=== PATIENT | female | born 1945 | race Caucasian/White ===

== ENCOUNTER 2018-09-04 07:21 | Inpatient (IN) | payer OTHER ==
--- NOTE | 2018-09-04 07:40 | PDOC ---
History of Present Illness - General Chief Complaint: Shortness of Breath Stated Complaint: SOB Time Seen by Provider: 09/04/18 07:38 - History of Present Illness Initial Comments: 72yo F with PMH of Afib on Coumadin and Aortic/Mitral valve replacement in 2011 and commisurotomy at age 26 presenting with shortness of breath. Patient reports she was feeling well yesterday. Last night, she woke up from bed suddenly with shortness of breath and nonproductive cough. Since that time, she has also had dyspnea on exertion. Does not feel worse if she lays flat. No leg swelling or calf pain. Denies sick contacts. She is visiting from [place] and took a six hour train trip on . States her symptoms feel like episodes of previous pneumonia she has had, as recently as two years ago, which also came on suddenly. Did get a flu shot this season. Reports that 'the valves are starting to close' in regards to her heart surgery but is being monitored every six months. INR was checked one week ago and was 2.1. No hemoptysis, no recent surgical history, no hormone use, no history of DVT or PE. Denies fevers of chills. PCP: Dr. Peter Meng (in [place]) Layout Designer: Dr. Jacobo (in [place]) Past History - Past Medical History Allergies/Adverse Reactions: Allergies Allergy/AdvReac Type Severity Reaction Status Date / Time Penicillins Allergy Verified 09/04/18 07:33 Home Medications: Ambulatory Orders Metoprolol Tartrate [Lopressor -] 50 mg PO DAILY 09/04/18 Simvastatin 40 mg PO 09/04/18 Warfarin Sodium [Coumadin] 9 mg PO DAILY 09/04/18 Cardiac Disorders: Yes (afib) COPD: No Hypercholesterolemia: Yes - Surgical History Cardiac Surgery: Yes (open heart x 2 vaulve replaement) - Suicide/Smoking/Psychosocial Hx Smoking History: Never smoked Have you smoked in the past 12 months: No Information on smoking cessation initiated: No Hx Alcohol Use: No Drug/Substance Use Hx: No Review of Systems - Review of Systems Comments:: Constitutional: no fever, no chills HEENT: no throat pain, no dysphagia Cardiovascular: no chest pain, no palpitations Respiratory: +cough, +shortness of breath Gastrointestinal: no abdominal pain, no vomiting Genitourinary: no dysuria, no frequency Musculoskeletal: no myalgia, no arthralgia Skin: no rash, no itching Neurologic: no headache, no weakness *Physical Exam - Vital Signs Last Vital Signs Temp Pulse Resp BP Pulse Ox 98.9 F 113 H 24 H 142/61 94 L 09/04/18 07:33 09/04/18 07:33 09/04/18 07:33 09/04/18 07:33 09/04/18 07:33 - Physical Exam Comments: General: Awake, alert, and fully oriented, in no acute distress Head: No signs of trauma Eyes: EOMI, sclera anicteric ENT: Moist mucus membranes Neck: Normal ROM, supple Lungs: Lungs with scant wheezes, Normal breath sounds Cardio: Irregular rhythm, S1 and S2 present, grade 2 systolic murmur Abdomen: Soft, nontender Extremities: Normal range of motion, Distal pulses present, no calf tenderness SKIN: Warm, Dry, normal turgor Neurologic: Cranial nerves II through XII grossly intact. Normal speech ED Treatment Course - LABORATORY CBC & Chemistry Diagram: 09/04/18 08:20 09/04/18 08:20 Medical Decision Making - Medical Decision Making 72yo F with PMH of Afib on Coumadin and Aortic/Mitral valve replacement in 2012 and at age 26 presenting with shortness of breath. DDX including but not limited to PNA, URI, Bronchitis, PE, ACS, CHF, afib w/RVR CBC, CMP, Mag, BNP, Trp, PT/INR CXR 1 amp duonebs Vitals significant for tachypnea at 24 and hypoxia, 94% Placed on 2L NC EKG: rate 98, QTc 436, Afib 09/04/18 08:20 CXR without acute chest pathology, per radiology Patient feels better after 1 duoneb, lung exam without wheezes No anemia or leukocytosis Awaiting chemistries 09/04/18 09:09 First tpn negative Bnp~480 EKG unchanged from previous EKG 08/12/17 sent from patient's vertical punch operator Will observe off oxygen and perform walk test Will plan to get second tpn 3 hours after first 09/04/18 09:22 Sat dipped down to 89-92 without supplemental O2 Plan to admit for hypoxia Ordered 20 lasix 09/04/18 09:47 Dr. Barber discussed case with inpatient team who accepted patient for admission under Dr. Chiu 09/04/18 10:58 *DC/Admit/Observation/Transfer Diagnosis at time of Disposition: Hypoxia - Discharge Dispostion Condition at time of disposition: Guarded Decision to Admit order: Yes - Referrals - Patient Instructions - Post Discharge Activity
[2018-09-04] MEDS ORDERED: ALBUTEROL SO4 2.5/IPRATROPIUM 0.5 INH SOL 3 ML VIAL.NEB. NEB ONE ×2 (08:10→08:16)
--- NOTE | 2018-09-04 08:31 | PDOC ---
Attending Attestation - Resident Resident Name: Emy Christian - ED Attending Attestation I have performed the following: I have examined & evaluated the patient, The case was reviewed & discussed with the resident, I agree w/resident's findings & plan - HPI HPI: 09/04/18 08:25 72-year-old female with history of mitral and aortic valve biological replacement, atrial fibrillation on Coumadin and metoprolol presents with shortness of breath since around 2 AM. Patient notes recent echoes have shown increasing stenosis of her valves, will likely need reoperation according to her kiln hand. Her last few weeks and months her dyspnea on exertion and has worsened when walking outdoors, but she was fine indoors. Patient was in her usual state of normal health, visiting from [place] to help take care of her grandchildren when she awoke at 2 AM with shortness of breath and palpitations, denied any chest pain or pressure. Dry cough, no recent fevers or chills or myalgias. Patient does have history of pneumonia and states her symptoms have begun abruptly in the past for this as well. - Physicial Exam PE: 09/04/18 08:27 Triage heart rate 113, EKG heart rate 98, resting heart rate during my history was 70s and 80s atrial fibrillation O2 sat 94% on room air, improves to 96-97% on 2 L Slightly tachypneic around 18 Alert, speaking full sentences but takes a big breath after, otherwise well- appearing and smiling and conversant No JVD Heart is irregular with normal rate, 3/6 systolic ejection murmur along the left sternal border Lungs are clear to my auscultation, no focal crackles or decreased breath sounds Abdomen benign No edema or calf tenderness - Medical Decision Making 09/04/18 08:28 72-year-old female with history of atrial fibrillation and known stenotic mitral and aortic valve replacements presents now with shortness of breath that began acutely overnight, no chest pain. Tachycardic and tachypneic on arrival, now improved on oxygen. Question primary cardiac such as arrhythmia versus CHF secondary to valvular pathology versus ACS, rule out pneumonia. Labs, EKG Chest x-ray Trial of nebulizer Currently rate controlled, will continue to monitor. Reassess and disposition accordingly 09/04/18 10:13 labs, cxr wnl. Pt remains hypoxic off O2, dropping to 91% and persistently symptomatic. Likely acute on chronic CHF, EKG and Echo from 06/16 faxed by kiln hand and reviewed. no new EKG changes (strain pattern old), echo at that time showed normal EF but moderate to severe stenosis. At the time, comments that patient had no symptoms of CHF, which is now changed. will need supplemental O2, cardiac eval, and will initiate gentle diuresis for presumed acute on chronic CHF. admit to tele. 09/04/18 10:31 accepted for tele admission by Dr. Chiu, signout given to Dr. Devries. Heart Score/ECG Review #1 ECG reviewed & interpreted by me at: 07:20 Compared to previous ECG there are: Previous ECG unavail 09/04/18 08:29 afib at 98. inferior-lateral ST depression with strain pattern, no NIKHIL. borderline intraventricular conduction delay
[2018-09-04 08:38] LABS: BASO % 1.1 % (0-2.0); EOS % 0.9 % (0-4.5); HEMATOCRIT 37.1 % (32.4-45.2); HEMOGLOBIN 12.6 GM/dL (10.7-15.3); LYMPH % 23.1 % (8-40); MCH 30.6 pg (25.7-33.7); MCHC 33.9 g/dl (32.0-36.0); MEAN CELL VOLUME 90.1 fl (80-96); MONO % 6.5 % (3.8-10.2); NEUT % 68.4 % (42.8-82.8); PLATELET COUNT 149 K/MM3 (134-434); RBC 4.12 M/mm3 (3.60-5.2); RDW 13.4 % (11.6-15.6); WHITE BLOOD COUNT 6.6 K/mm3 (4.0-10.0)
[2018-09-04 09:13] LABS: INR 2.8 (0.83-1.09); PROTHROMBIN TIME (PATIENT) 33.4 SEC (9.7-13.0)
[2018-09-04 09:14] LABS: ALBUMIN 3.8 g/dl (3.4-5.0); ALK PHOS 95 U/L (45-117); ANION GAP 5 MMOL/L (8-16); BILIRUBIN,TOTAL 1.4 mg/dL (0.2-1); BLOOD UREA NITROGEN 20 mg/dL (7-18); CALCIUM 8.7 mg/dL (8.5-10.1); CHLORIDE 108 mmol/L (98-107); CO2 27 mmol/L (21-32); CREATININE 0.5 mg/dL (0.55-1.3); GLUCOSE,RANDOM 115 mg/dL (74-106); MAGNESIUM 1.9 mg/dL (1.8-2.4); N-TERMINAL BNP 481.8 pg/ml (5-125); POTASSIUM 3.8 mmol/L (3.5-5.1); SGOT/AST 43 U/L (15-37); SGPT/ALT 49 U/L (13-61); SODIUM 139 mmol/L (136-145); TOT PROT 7.2 g/dl (6.4-8.2)
[2018-09-04] MEDS ORDERED: FUROSEMIDE 40 MG/4 ML INJECTABLE VIAL IVPUSH ONE ×2 (09:47→17:30)
[2018-09-04] MEDS ORDERED: FUROSEMIDE 40 MG/4 ML INJECTABLE VIAL ONE ×2 (10:05→18:24)
--- NOTE | 2018-09-04 10:29 | HP ---
CHIEF COMPLAINT: PCP: Dr. Peter Meng (in [place]) Quality Assurance Supervisor: Dr. Jacobo (in [place]) HISTORY OF PRESENT ILLNESS: This is a 72 yo F with PMH of chrnc asymtpmatic CHF due to mitral and aortic valve stenosis (last biological valve replacement 2011), rheumatic valve disease and constant AF on Coumadin and metoprolol for 30 yrs, who presents due to SOB and palpitations since 2 AM. Symptoms are associated with dry cough, orthopnea and increased exercise intolerance w/o f/c, cp. She is visiting from [place], where she had regular cardiology f/u. Last CHF exacerbation 2011 prompting av, mv replacement. Recent TTE showed increasing stenosis of both valves that may require reoperation. Last TTE 06/16 obtained by ER from her reel hooker showed normal EF but moderate to severe av stenosis 0.8 cm2 and mild/mod MV stenosis 1.69 cm2. Patient had a failed electric cardioversion in for AF. On presentation EKG showed AF 98 with old strain pattern when compared to past EKG. On presentation O2 sat was 94% on RA, improving to 96-97% on 2 L. valves: 12/2011 AVR 21mm medtronic tissue valve MVR 31 mm medtronic tissue valve ER course was notable for: (1)cxr (2)O2 Nc (3)wendi alejo Recent Travel: from [place] PAST MEDICAL HISTORY: as above PAST SURGICAL HISTORY: as above Social History: Smoking: denies Alcohol:denies Drugs: denies Family History: Allergies Penicillins Allergy (Verified 09/04/18 07:33) HOME MEDICATIONS: Home Medications Medication Instructions Recorded Metoprolol Tartrate [Lopressor -] 50 mg PO DAILY 09/04/18 Simvastatin 40 mg PO 09/04/18 Warfarin Sodium [Coumadin] 9 mg PO DAILY 09/04/18 REVIEW OF SYSTEMS CONSTITUTIONAL: Absent: fever, chills, HEENT: Absent: rhinorrhea, nasal congestion, throat pain CARDIOVASCULAR: Absent: chest pain, syncope, lightheadedness, peripheral edema RESPIRATORY: Absent: wheezing, stridor, hemoptysis GASTROINTESTINAL: Absent: abdominal pain, abdominal distension, nausea, vomiting, diarrhea, constipation, melena, hematochezia GENITOURINARY: Absent: dysuria, flank pain MUSCULOSKELETAL: Absent: back pain, neck pain SKIN: Absent: rash, itching, pallor HEMATOLOGIC/IMMUNOLOGIC: Absent: lymphadenopathy, frequent infections ENDOCRINE: Absent: heat intolerance, cold intolerance NEUROLOGIC: Absent: headache, focal weakness or paresthesias PSYCHIATRIC: Absent: anxiety, depression PHYSICAL EXAMINATION Vital Signs - 24 hr 09/04/18 09/04/18 09/04/18 07:33 08:00 08:37 Temperature 98.9 F Pulse Rate 113 H Pulse Rate [ Apical] Respiratory 24 H Rate Blood Pressure 142/61 Blood Pressure [Right Arm] O2 Sat by Pulse 94 L 94 L 99 Oximetry (%) 09/04/18 10:00 Temperature Pulse Rate Pulse Rate [ 66 Apical] Respiratory 21 H Rate Blood Pressure Blood Pressure 114/50 L [Right Arm] O2 Sat by Pulse 95 Oximetry (%) GENERAL: Awake, alert, and fully oriented, in no acute distress. HEAD: Normal with no signs of trauma. EYES: Pupils equal, round and reactive to light, extraocular movements intact, sclera anicteric, conjunctiva clear. EARS, NOSE, THROAT: Moist mucous membranes. NECK: Normal range of motion, supple without JVD LUNGS: Breath sounds equal, clear to auscultation bilaterally. No wheezes, and no crackles. No accessory muscle use. HEART: irregularly irregular, regular rate, normal S1 and S2, loud systlic murmur best heard in upper and lower R sternal boarders . ABDOMEN: Soft, nontender, not distended, normoactive bowel sounds, no guarding, no rebound, no masses. MUSCULOSKELETAL: No CVA tenderness. UPPER EXTREMITIES: 2+ pulses, warm, well-perfused. No cyanosis. No clubbing. No peripheral edema. LOWER EXTREMITIES: 2+ pulses, warm, well-perfused. No calf tenderness. No peripheral edema. NEUROLOGICAL: Cranial nerves II-XII grossly intact. Normal speech. PSYCHIATRIC: Cooperative. Good eye contact. Appropriate mood and affect. SKIN: Warm, dry Laboratory Results - last 24 hr 09/04/18 09/04/18 09/04/18 08:20 08:20 08:20 WBC 6.6 RBC 4.12 Hgb 12.6 Hct 37.1 MCV 90.1 MCH 30.6 MCHC 33.9 RDW 13.4 Plt Count 149 MPV 8.0 Absolute Neuts (auto) 4.5 Neutrophils % 68.4 Lymphocytes % 23.1 Monocytes % 6.5 Eosinophils % 0.9 Basophils % 1.1 Nucleated RBC % 0 PT with INR 33.40 H INR 2.80 H Sodium 139 Potassium 3.8 Chloride 108 H Carbon Dioxide 27 Anion Gap 5 L BUN 20 H Creatinine 0.5 L Creat Clearance w eGFR 120.94 Random Glucose 115 H Calcium 8.7 Magnesium 1.9 Total Bilirubin 1.4 H AST 43 H ALT 49 Alkaline Phosphatase 95 Troponin I < 0.02 B-Natriuretic Peptide 481.8 H Total Protein 7.2 Albumin 3.8 ASSESSMENT/PLAN: This is a 72 yo F with PMH of chrnc asymtpmatic CHF due to mitral and aortic valve stenosis (last biological valve replacement 2011), rheumatic valve disease and constant AF on Coumadin and metoprolol for 30 yrs, who presents due to SOB and palpitations since 2 AM. 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 kriss sminister low lsoe IV lasix tomorrow -CHF exacerbation due to worsening valvular disease needs to be addressed surgically, preferably in [place]. f/u TTE to compare AV, MV diameter; if worsening stenosis, will need CT surgery eval -trop negative x 1, low risk for CAD. f/u trop #2. stress test likely not necessary -INR at goal , rate controlled, continue coum, metoprolol -continue lipitor -tele monitoring Problem List - Problem (1) CHF (congestive heart failure), NYHA class II Code(s): I50.9 - HEART FAILURE, UNSPECIFIED (2) CHF due to valvular disease Code(s): I50.9 - HEART FAILURE, UNSPECIFIED; I38 - ENDOCARDITIS, VALVE UNSPECIFIED Visit type - Emergency Visit Emergency Visit: Yes ED Registration Date: 09/04/18 Care time: The patient presented to the Emergency Department on the above date and was hospitalized for further evaluation of their emergent condition. - New Patient This patient is new to me today: Yes Date on this admission: 09/05/18 - Critical Care Critical Care patient: No
[2018-09-04 13:33] LABS: PHOSPHOROUS 2.7 mg/dL (2.5-4.9)
--- NOTE | 2018-09-04 14:02 | ECHO ---
Name: RAMSES SPANGLER Exam:Adult Echocardiogram Study Date: 09/04/2018 11:57 AM Age: 72 yrs Height: 65 in Weight: 180 lb BSA: 1.9 m2 MMode/2D Measurements & Calculations IVSd: 1.0 cm Ao root diam: 2.6 cm LVIDd: 5.4 cm LA dimension: 6.0 cm LVIDs: 4.0 cm LVPWd: 0.89 cm EDV(Teich): 141.5 ml LVOT diam: 2.0 cm ESV(Teich): 71.9 ml Doppler Measurements & Calculations Ao V2 max: 384.1 cm/sec MVA(VTI): 0.89 cm2 Ao max P.5 mmHg MV V2 max: 201.3 cm/sec Ao V2 mean: 279.1 cm/sec MV max P.4 mmHg Ao mean P.2 mmHg MV V2 mean: 93.0 cm/sec Ao V2 VTI: 95.9 cm MV mean P.7 mmHg MV V2 VTI: 55.0 cm CASS(I,D): 0.51 cm2 CASS(V,D): 0.61 cm2 LV V1 max P.4 mmHg SV(LVOT): 48.7 ml LV V1 mean P.4 mmHg LV V1 max: 77.8 cm/sec LV V1 mean: 56.0 cm/sec LV V1 VTI: 16.2 cm TR max linda: 247.5 cm/sec PI end-d linda: 116.2 cm/sec TR max P.8 mmHg Procedure A two-dimensional transthoracic echocardiogram with color flow and Doppler was performed. The study w as technically difficult with many images being suboptimal in quality. The patient was in atrial fibrill ation with controlled ventricular rate during the exam. Left Ventricle The left ventricular size, thickness and function are normal. Right Ventricle The right ventricle is normal in size and function. Atria The left atrium is severely dilated. The right atrium is moderately dilated. Mitral Valve There is a bioprosthetic mitral valve. There is moderate to severe mitral stenosis. severe stenosis b y MVA 0.89cm2 but moderate by mean PG of 5mmHg HR 72bpm at time of measurement. Tricuspid Valve The tricuspid valve is not well visualized, but is grossly normal. There is mild tricuspid regurgitat ion. There is mild pulmonary hypertension. Aortic Valve There is a bioprosthetic aortic valve. Severe valvular aortic stenosis. CASS 0.61cm2, AV mean PG 40mmH g, max PG 70mmHg. Pulmonic Valve The pulmonic valve is not well visualized. Great Vessels The aortic root is normal size. Pericardium/Pleura There is no pericardial effusion. Interpretation Summary The left ventricular size, thickness and function are normal The left atrium is severely dilated. There is a bioprosthetic mitral valve. There is moderate to severe mitral stenosis. There is mild tricuspid regurgitation. Severe valvular aortic stenosis. CASS 0.61cm2, AV mean PG 40mmHg, max PG 70mmHg severe stenosis by MVA 0.89cm2 but moderate by mean PG of 5mmHg HR 72bpm at time of measurement There is no pericardial effusion. There is mild pulmonary hypertension. MD Ramirez Corea 09/04/2018 02:02 PM
[2018-09-04 14:36] LABS: MAGNESIUM 1.9 mg/dL (1.8-2.4); PHOSPHOROUS 2.6 mg/dL (2.5-4.9)
--- NOTE | 2018-09-04 16:23 | CON.CARD ---
Consult Consult Specialty:: cardio - History of Present Illness Chief Complaint: sob History of Present Illness: 72 F with sob. lives in [place] and has complicated cardiac history followed by outside electromedical equipment technician. rheumatic heart dz with prio mitral and aortic valve replacements (last biological valve replacement 2011) persistent Afib on Coumadin overnight awoke with sob and heart racing (simultaneously)--both continued for some time after sat up. felt much better shortly after arrived in ER. given a dose of lasix 20 iv here and urinated profusely. HAS NEVER HAD SOB BEFORE AND NO SOB SINCE THAT SX RESOLVED. no cp at any time. no more palps here. says that when she had echo 06/16 she was told of problems (narrowing) of both the valves but she was fully independent and ambulatory with no sob or other sx' s and her electromedical equipment technician conferred with surgeon and they decided to continue monitoring. pt admits to ham and cheese quiche yest for lunch (tasted obviously salty) and corned beef sandwich approx 48 hrs prior to sx onset. Admitting team d/w'd pt's outside electromedical equipment technician who provided echo from 05/2018 showing prosthetic AV stenosis with CASS reportedly estimated at 0.8cm2 then, preserved LVSF. Also with mild/mod MV stenosis. initial ER vitals sat 94% on RA, HR 113, BP normal. remains hemodynamically stable - Alcohol/Substance Use Hx Alcohol Use: No - Smoking History Smoking history: Never smoked Have you smoked in the past 12 months: No Home Medications - Allergies Allergies/Adverse Reactions: Allergies Allergy/AdvReac Type Severity Reaction Status Date / Time Penicillins Allergy Verified 09/04/18 07:33 - Home Medications Home Medications: Ambulatory Orders Metoprolol Tartrate [Lopressor -] 50 mg PO DAILY 09/04/18 Simvastatin 40 mg PO 09/04/18 Warfarin Sodium [Coumadin] 9 mg PO DAILY 09/04/18 Family Disease History - Family Disease History Family History: Denies (no known cmp) Review of Systems - Review of Systems Constitutional: denies: Chills, Fever Eyes: denies: Eye Pain HENT: denies: Nasal Congestion Neck: denies: Stiffness Cardiovascular: denies: Edema Respiratory: denies: Hemoptysis, Wheezing Gastrointestinal: denies: Diarrhea, Rectal Bleeding Genitourinary: denies: Burning, Hematuria Musculoskeletal: denies: Muscle Pain Integumentary: denies: Rash Neurological: denies: Numbness, Seizure, Syncope Endocrine: denies: Excessive Sweating Hematology/Lymphatic: denies: Excessive Bleeding Vital Signs: Vital Signs Temperature 98.9 F 09/04/18 07:33 Pulse Rate 66 09/04/18 10:00 Respiratory Rate 21 H 09/04/18 10:00 Blood Pressure 114/50 L 09/04/18 10:00 O2 Sat by Pulse Oximetry (%) 95 09/04/18 10:00 Constitutional: Yes: Well Nourished, No Distress Eyes: No: Sclera Icterus HENT: No: Nasal Congestion Neck: No: Decreased ROM Respiratory: Yes: CTA Bilaterally. No: Accessory Muscle Use, Rales, Wheezes Gastrointestinal: Yes: Normal Bowel Sounds. No: Distention, Hepatomegaly, Palpable Mass, Tenderness Cardiovascular: Yes: Pulse Irregular JVD: Yes Carotid Bruit: No PMI: Non-Displaced Heart Sounds: Yes: S1, S2. No: Gallop Murmur: Yes: Systolic Murmur (CAYETANO lusb with single S2 present). No: Diastolic Murmur Musculoskeletal: Yes: Other (No kyphosis) Extremities: No: Cool, Cyanosis Edema: No Peripheral Pulses: 2+ Left Carotid, 2+ Right Carotid, 2+ Left Doralis Pedis, 2+ Right Dorsalis Pedis Integumentary: No: Jaundice Neurological: Yes: Alert, Oriented (x3) Psychiatric: No: Agitated - Other Data Labs, Other Data: CBC, BMP 09/04/18 08:20 09/04/18 08:20 INR, PTT INR 2.80 (0.83-1.09) H 09/04/18 08:20 Troponin, BNP 09/04/18 09/04/18 08:20 13:28 Troponin I < 0.02 < 0.02 B-Natriuretic Peptide 481.8 H Troponin, BNP 09/04/18 09/04/18 08:20 13:28 Troponin I < 0.02 < 0.02 B-Natriuretic Peptide 481.8 H Laboratory Tests 09/04/18 09/04/18 09/04/18 08:20 08:20 08:20 WBC 6.6 Hgb 12.6 Plt Count 149 INR 2.80 H Sodium 139 Potassium 3.8 Carbon Dioxide 27 BUN 20 H Creatinine 0.5 L AST 43 H ALT 49 Troponin I < 0.02 B-Natriuretic Peptide 481.8 H TSH 09/04/18 13:28 WBC Hgb Plt Count INR Sodium Potassium Carbon Dioxide BUN Creatinine AST ALT Troponin I < 0.02 B-Natriuretic Peptide TSH 0.74 Assessment/Plan ECG: afib 98 bpm. R qrs axis. non-diagnostic ST-T abn with baseline wander artifact superimposed (no old to compare) CXR: clear lungs/pleura my review: + vascular redistribution but no pulm edema Echo 09/04/18: TDS. afib rhythm. nl LV size/LVSF. nl RV. L/JAKY. bioAVR with severe : CASS 0.6 cm2, gradients 70/40. bioMVR with mod-severe mitral stenosis : mean gradient 5 mmHg at HR 72 (MVA 0.89 cm2). mild pulm HTN acute HFpEF/bioAVR stenosis/bioMVR stenosis -? sx's due to CHF from bioprosthetic AV stenosis. BNP underwhelming for that though possible (400). alternatively, may have been due to significant bioprosthetic mitral valve stenosis especially with rapid afib rates (was 110s on admit) which would potentially cause signif elevation in LAP-->PA pressure. -no preceding sx's, acute onset here very likely due to incr'd filling pressures in setting of incr'd dietary sodium load. -trop neg x 2. ECG = likely non-ischemic. -remains completely asymptomatic and hemodynamically stable. -had good UOP response to lasix 20 IV. remains with JVD present on exam--will repeat dose now. -aggressive AFib rate control paramount to control LA pressures in setting of mitral stenosis (as below) -pt will eventually require evaluation with MARZENA +/- RHC at [facility], with consideration of balloon mitral valvulolasty vs reop, and/or valve- in-valve TAVR vs reop. given that she has a electromedical equipment technician who follows her closely in [place], would seem to make the most sense to have this evaluation done at his affiliated tertiary care center. disc'd this plan with dr castellon hospitalist--he and his team will contact patient's electromedical equipment technician in AM to arrange transfer to [facility] Afib: -on warfarin, INR therapeutic--continue with goal INR 2-3 -aggressive HR control: change home lopressor 50 to toprol 50 bid for better 24 hr drug levels. -tele monitoring
[2018-09-04] MEDS: WARFARIN NA 3 MG TABLET PO SCH (18:06)
[2018-09-04] MEDS ORDERED: WARFARIN NA 1 MG TABLET (FP) ONE (18:23)
[2018-09-04] MEDS ORDERED: WARFARIN NA 5 MG TABLET (UD) ONE (18:24)
--- NOTE | 2018-09-04 18:29 | PN ---
Teaching Attending Note Name of Resident: Swetha Devries ATTENDING PHYSICIAN STATEMENT I saw and evaluated the patient. I reviewed the resident's note and discussed the case with the resident. I agree with the resident's findings and plan as documented. SUBJECTIVE: SOB resolved s/p IV Lasix in ED. No cough/sputum/hemoptysis/fever/ chills/CP OBJECTIVE: Afebrile, Hemodynamically Stable Last Vital Signs Temp Pulse Resp BP Pulse Ox 98.9 F 66 21 H 114/50 L 95 09/04/18 07:33 09/04/18 10:00 09/04/18 10:00 09/04/18 10:00 09/04/18 10:00 HEENT - Atraumatic, Normocephalic Heart - S1, S2, SM Lungs - clear to auscultation Abdomen - Soft, non-tender. High BMI. Bowel Sounds normal. Extremities - no edema, no calf tenderness Laboratory Results - last 24 hr 09/04/18 09/04/18 09/04/18 08:20 08:20 08:20 WBC 6.6 RBC 4.12 Hgb 12.6 Hct 37.1 MCV 90.1 MCH 30.6 MCHC 33.9 RDW 13.4 Plt Count 149 MPV 8.0 Absolute Neuts (auto) 4.5 Neutrophils % 68.4 Lymphocytes % 23.1 Monocytes % 6.5 Eosinophils % 0.9 Basophils % 1.1 Nucleated RBC % 0 PT with INR 33.40 H INR 2.80 H Sodium 139 Potassium 3.8 Chloride 108 H Carbon Dioxide 27 Anion Gap 5 L BUN 20 H Creatinine 0.5 L Creat Clearance w eGFR 120.94 Random Glucose 115 H Calcium 8.7 Phosphorus 2.7 Magnesium 1.9 Total Bilirubin 1.4 H AST 43 H ALT 49 Alkaline Phosphatase 95 Troponin I < 0.02 B-Natriuretic Peptide 481.8 H Total Protein 7.2 Albumin 3.8 TSH 0.73 Free T4 1.14 09/04/18 13:28 WBC RBC Hgb Hct MCV MCH MCHC RDW Plt Count MPV Absolute Neuts (auto) Neutrophils % Lymphocytes % Monocytes % Eosinophils % Basophils % Nucleated RBC % PT with INR INR Sodium Potassium Chloride Carbon Dioxide Anion Gap BUN Creatinine Creat Clearance w eGFR Random Glucose Calcium Phosphorus 2.6 Magnesium 1.9 Total Bilirubin AST ALT Alkaline Phosphatase Troponin I < 0.02 B-Natriuretic Peptide Total Protein Albumin TSH 0.74 Free T4 1.06 Current Medications Generic Name Dose Route Start Last Admin Trade Name Ashokq PRN Reason Stop Dose Admin Atorvastatin Calcium 40 mg 09/05/18 10:00 Lipitor - PO DAILY [facility] Furosemide 20 mg 09/05/18 10:00 Lasix Injection - IVPUSH 09/05/18 10:01 ONCE ONE Metoprolol Succinate 50 mg 09/04/18 16:32 09/04/18 16:47 Toprol Xl - PO 50 mg BID [facility] Administration Warfarin Sodium 9 mg 09/04/18 18:00 09/04/18 18:06 Coumadin - PO 9 mg DAILY@1800 [facility] Administration ASSESSMENT AND PLAN: 72 year old female with history of Rheumatic Valve Disease s/p Mitral and Aortic Valve Replacement 2011 (Medtronic tissue valves), Atrial Fibrillation on Coumadin, presents with new onset dyspnea, orthopnea, worse on exertion. 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 1. Acute on Chronic Diastolic CHF Exacerbation with moderate-severe re-stenosis MV, severe re-stenosis Mild elevation in BNP, TropI neg CXR - no acute cardiopulmonary findings. Responding to IV Lasix - currently comfortable, without dyspnea or hypoxia. 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 2. Atrial Fibrillation Continue Metoprolol and AC with Coumadin - INR 2.8 Metoprolol changed to Toprol XL by Cardiology DVT Px - on Coumadin, therapeutic INR
[2018-09-04 23:14] VITALS: BMI 29.3
[2018-09-05 06:31] LABS: MCH 30.1 pg (25.7-33.7); MCHC 33.4 g/dl (32.0-36.0); MEAN CELL VOLUME 90.3 fl (80-96); MEAN PLT VOLUME 8.2 fl (7.5-11.1); PLATELET COUNT 165 K/MM3 (134-434); RBC 4.32 M/mm3 (3.60-5.2); RDW 13.4 % (11.6-15.6); WHITE BLOOD COUNT 6.8 K/mm3 (4.0-10.0)
[2018-09-05 07:04] LABS: ALBUMIN 3.8 g/dl (3.4-5.0); ALK PHOS 90 U/L (45-117); ANION GAP 5 MMOL/L (8-16); BILIRUBIN,TOTAL 1.8 mg/dL (0.2-1); BLOOD UREA NITROGEN 11 mg/dL (7-18); CHLORIDE 105 mmol/L (98-107); CO2 30 mmol/L (21-32); CREATININE 0.5 mg/dL (0.55-1.3); GLUCOSE,RANDOM 94 mg/dL (74-106); MAGNESIUM 1.9 mg/dL (1.8-2.4); PHOSPHOROUS 3.3 mg/dL (2.5-4.9); POTASSIUM 3.5 mmol/L (3.5-5.1); SGOT/AST 26 U/L (15-37); SGPT/ALT 38 U/L (13-61); SODIUM 139 mmol/L (136-145)
[2018-09-05] MEDS ORDERED: POTASSIUM CHLORIDE TABS 20 MEQ TABLET.ER (FP) PO ONE ×2 (08:15→09:15)
[2018-09-05 09:05] LABS: BILIRUBIN,DIRECT 0.4 mg/dL (0.0-0.2)
[2018-09-05] MEDS ORDERED: FUROSEMIDE 40 MG/4 ML INJECTABLE VIAL IVPUSH ONE (10:00)
[2018-09-05] MEDS ORDERED: METOPROLOL TARTRATE 50 MG TABLET (FP) PO SCH (10:00)
[2018-09-05] MEDS ORDERED: ATORVASTATIN CA 40 MG TABLET (FP) PO SCH (10:00)
[2018-09-05 10:27] LABS: INR 2.88 (0.83-1.09); PROTHROMBIN TIME (PATIENT) 34.4 SEC (9.7-13.0)
--- NOTE | 2018-09-05 10:47 | PN ---
Progress Note (short form) - Note Progress Note: s: no chest pain, palps, dizziness. sob improving Current Medications Atorvastatin Calcium (Lipitor -) 40 mg PO DAILY [facility] Last Admin: 09/05/18 10:20 Dose: 40 mg Metoprolol Succinate (Toprol Xl -) 50 mg PO BID [facility] Last Admin: 09/05/18 10:21 Dose: 50 mg Warfarin Sodium (Coumadin -) 9 mg PO DAILY@1800 [facility] Last Admin: 09/04/18 18:06 Dose: 9 mg Vital Signs: Vital Signs Period Temp Pulse Resp BP Sys/Bettencourt Pulse Ox Last 24 Hr 98.5 F-98.7 F 65-88 16-20 102-127/46-70 97-99 Constitutional: Yes: Well Nourished, No Distress Eyes: No: Sclera Icterus HENT: No: Nasal Congestion Neck: No: Decreased ROM Respiratory: Yes: CTA Bilaterally. No: Accessory Muscle Use, Rales, Wheezes Gastrointestinal: Yes: Normal Bowel Sounds. No: Distention, Hepatomegaly, Palpable Mass, Tenderness Cardiovascular: Yes: Pulse Irregular JVD: Yes Carotid Bruit: No PMI: Non-Displaced Heart Sounds: Yes: S1, S2. No: Gallop Murmur: Yes: Systolic Murmur (CAYETANO lusb with single S2 present). No: Diastolic Murmur Musculoskeletal: Yes: Other (No kyphosis) Extremities: No: Cool, Cyanosis Edema: No Peripheral Pulses: 2+ Left Carotid, 2+ Right Carotid, 2+ Left Doralis Pedis, 2+ Right Dorsalis Pedis Integumentary: No: Jaundice Neurological: Yes: Alert, Oriented (x3) Psychiatric: No: Agitated Assessment/Plan ECG: afib 98 bpm. R qrs axis. non-diagnostic ST-T abn with baseline wander artifact superimposed (no old to compare) CXR: clear lungs/pleura my review: + vascular redistribution but no pulm edema Echo 09/04/18: TDS. afib rhythm. nl LV size/LVSF. nl RV. L/JAKY. bioAVR with severe : CASS 0.6 cm2, gradients 70/40. bioMVR with mod-severe mitral stenosis : mean gradient 5 mmHg at HR 72 (MVA 0.89 cm2). mild pulm HTN tele: afib, rate ok acute HFpEF/bioAVR stenosis/bioMVR stenosis -? sx's due to CHF from bioprosthetic AV stenosis. BNP underwhelming for that though possible (400). alternatively, may have been due to significant bioprosthetic mitral valve stenosis especially with rapid afib rates (was 110s on admit) which would potentially cause signif elevation in LAP-->PA pressure. -no preceding sx's, acute onset here very likely due to incr'd filling pressures in setting of incr'd dietary sodium load. -trop neg x 2. ECG = likely non-ischemic. -remains completely asymptomatic and hemodynamically stable. - received lasix 20 mg IV x 2, additional dose this AM 09/05 with improved dyspnea -aggressive AFib rate control paramount to control LA pressures in setting of mitral stenosis (as below) -pt will eventually require evaluation with MARZENA +/- RHC at [facility], with consideration of balloon mitral valvulolasty vs reop, and/or valve- in-valve TAVR vs reop. given that she has a rehabilitation caseworker who follows her closely in [place], would seem to make the most sense to have this evaluation done at his affiliated tertiary care center. -awaiting transfer to [facility] Afib: -on warfarin, INR therapeutic--continue with goal INR 2-3 -aggressive HR control: changed home lopressor 50 to toprol 50 bid for better 24 hr drug levels. -tele monitoring
--- NOTE | 2018-09-05 11:06 | EKG ---
Test Reason : Blood Pressure : / mmHG Vent. Rate : 098 BPM Atrial Rate : 098 BPM P-R Int : 000 ms QRS Dur : 114 ms QT Int : 342 ms P-R-T Axes : 000 099 012 degrees QTc Int : 436 ms ATRIAL FIBRILLATION RIGHTWARD AXIS MARKED ST ABNORMALITY, POSSIBLE INFERIOR SUBENDOCARDIAL INJURY ABNORMAL ECG NO PREVIOUS ECGS AVAILABLE Confirmed by VANESA VIEIRA MD ([id number]) on 09/05/2018 11:06:03 AM Referred By: Confirmed By:VANESA VIEIRA MD
--- NOTE | 2018-09-05 12:10 | DS ---
Physical Exam: SUBJECTIVE: Patient seen and examined OBJECTIVE: Vital Signs Period Temp Pulse Resp BP Sys/Bettencourt Pulse Ox Last 24 Hr 98 F-98.7 F 65-90 16-20 102-127/46-70 97-99 PHYSICAL EXAM GENERAL: The patient is awake, alert, and fully oriented, in no acute distress. HEAD: Normal with no signs of trauma. EYES: PERRL, extraocular movements intact, sclera anicteric, conjunctiva clear. ENT: Ears normal, nares patent, oropharynx clear without exudates, moist mucous membranes. NECK: Trachea midline, full range of motion, supple. LUNGS: Breath sounds equal, clear to auscultation bilaterally, no wheezes, no crackles, no accessory muscle use. HEART: Regular rate and rhythm, S1, S2 without murmur, rub or gallop. ABDOMEN: Soft, nontender, nondistended, normoactive bowel sounds, no guarding, no rebound, no hepatosplenomegaly, no masses. EXTREMITIES: 2+ pulses, warm, well-perfused, no edema. NEUROLOGICAL: Cranial nerves II through XII grossly intact. Normal speech, gait not observed. PSYCH: Normal mood, normal affect. SKIN: Warm, dry, normal turgor, no rashes or lesions noted. LABS Laboratory Results - last 24 hr 09/04/18 09/04/18 09/05/18 08:20 13:28 05:30 WBC 6.8 RBC 4.32 Hgb 13.0 Hct 39.0 MCV 90.3 MCH 30.1 MCHC 33.4 RDW 13.4 Plt Count 165 MPV 8.2 PT with INR INR Sodium 139 Potassium 3.8 Chloride 108 H Carbon Dioxide 27 Anion Gap 5 L BUN 20 H Creatinine 0.5 L Creat Clearance w eGFR 120.94 Random Glucose 115 H Calcium 8.7 Phosphorus 2.7 2.6 Magnesium 1.9 1.9 Total Bilirubin 1.4 H Direct Bilirubin AST 43 H ALT 49 Alkaline Phosphatase 95 Troponin I < 0.02 < 0.02 B-Natriuretic Peptide 481.8 H Total Protein 7.2 Albumin 3.8 TSH 0.73 0.74 Free T4 1.14 1.06 09/05/18 09/05/18 05:30 09:35 WBC RBC Hgb Hct MCV MCH MCHC RDW Plt Count MPV PT with INR 34.40 H INR 2.88 H Sodium 139 Potassium 3.5 Chloride 105 Carbon Dioxide 30 Anion Gap 5 L BUN 11 Creatinine 0.5 L Creat Clearance w eGFR 120.94 Random Glucose 94 Calcium 9.0 Phosphorus 3.3 Magnesium 1.9 Total Bilirubin 1.8 H Direct Bilirubin 0.4 H AST 26 ALT 38 Alkaline Phosphatase 90 Troponin I B-Natriuretic Peptide Total Protein 7.0 Albumin 3.8 TSH Free T4 HOSPITAL COURSE: Date of Admission:09/04/18 Date of Discharge: 09/05/18 Discharge Summary Reason For Visit: CONGESTIVE HEART FAILURE HYPOXIA Current Active Problems CHF (congestive heart failure), NYHA class II (Acute) CHF due to valvular disease (Acute) Hypoxia (Acute) Condition: Stable - Instructions Diet, Activity, Other Instructions: You came in for shortness of breath. We did an EKG which showed A.Fibrillation we started you on Metoprolol Succinate 50mg BID, monitored you on telemetry, continued your other home medications or equivalents. We did an echo of your heart which showed increasing stenosis We gave intravenous Lasix according volume status we are transferring you to your home hospital where you have your customer engineering specialist and cardiacthoracic surgeon to evaluate you for further management. "ECG: afib 98 bpm. R qrs axis. non-diagnostic ST-T abn with baseline wander artifact superimposed (no old to compare) CXR: clear lungs/pleura my review: + vascular redistribution but no pulm edema Echo 09/04/18: TDS. afib rhythm. nl LV size/LVSF. nl RV. L/JAKY. bioAVR with severe : CASS 0.6 cm2, gradients 70/40. bioMVR with mod-severe mitral stenosis : mean gradient 5 mmHg at HR 72 (MVA 0.89 cm2). mild pulm HTN acute HFpEF/bioAVR stenosis/bioMVR stenosis -? sx's due to CHF from bioprosthetic AV stenosis. BNP underwhelming for that though possible (400). alternatively, may have been due to significant bioprosthetic mitral valve stenosis especially with rapid afib rates (was 110s on admit) which would potentially cause signif elevation in LAP-->PA pressure. -no preceding sx's, acute onset here very likely due to incr'd filling pressures in setting of incr'd dietary sodium load. -trop neg x 2. ECG = likely non-ischemic. -remains completely asymptomatic and hemodynamically stable. -had good UOP response to lasix 20 IV. remains with JVD present on exam--will repeat dose now. -aggressive AFib rate control paramount to control LA pressures in setting of mitral stenosis (as below) -pt will eventually require evaluation with MARZENA +/- R[facility] at [facility], with consideration of balloon mitral valvulolasty vs reop, and/or valve- in-valve TAVR vs reop. given that she has a customer engineering specialist who follows her closely in [place], would seem to make the most sense to have this evaluation done at his affiliated tertiary care center. disc'd this plan with dr castellon hospitalist--he and his team will contact patient's customer engineering specialist in AM to arrange transfer to [facility] Afib: -on warfarin, INR therapeutic--continue with goal INR 2-3 -aggressive HR control: change home lopressor 50 to toprol 50 bid for better 24 hr drug levels. -tele monitoring" Disposition: TRANSFER ACUTE CARE/OTHER HOSP - Home Medications Comprehensive Discharge Medication List: Ambulatory Orders Metoprolol Tartrate [Lopressor -] 50 mg PO DAILY 09/04/18 Simvastatin 40 mg PO HS 09/04/18 Warfarin Sodium [Coumadin] 9 mg PO DAILY 09/04/18
--- NOTE | 2018-09-05 15:21 | PN ---
Teaching Attending Note Name of Resident: Fred Lopez ATTENDING PHYSICIAN STATEMENT I saw and evaluated the patient. I reviewed the resident's note and discussed the case with the resident. I agree with the resident's findings and plan as documented. SUBJECTIVE: No further dyspneic episodes. No cough/sputum/hemoptysis/fever/ chills/CP OBJECTIVE: Afebrile, Hemodynamically Stable Last Vital Signs Temp Pulse Resp BP Pulse Ox 98 F 90 20 112/65 97 09/05/18 10:00 09/05/18 10:00 09/05/18 10:00 09/05/18 10:09/04/18 21:30 Heart - S1, S2, SM. Midline sternotomy Lungs - clear to auscultation Abdomen - Soft, non-tender. High BMI. Bowel Sounds normal. Extremities - no edema, no calf tenderness Laboratory Results - last 24 hr 09/05/18 09/05/18 09/05/18 05:30 05:30 09:35 WBC 6.8 RBC 4.32 Hgb 13.0 Hct 39.0 MCV 90.3 MCH 30.1 MCHC 33.4 RDW 13.4 Plt Count 165 MPV 8.2 PT with INR 34.40 H INR 2.88 H Sodium 139 Potassium 3.5 Chloride 105 Carbon Dioxide 30 Anion Gap 5 L BUN 11 Creatinine 0.5 L Creat Clearance w eGFR 120.94 Random Glucose 94 Calcium 9.0 Phosphorus 3.3 Magnesium 1.9 Total Bilirubin 1.8 H Direct Bilirubin 0.4 H AST 26 ALT 38 Alkaline Phosphatase 90 Total Protein 7.0 Albumin 3.8 Current Medications Generic Name Dose Route Start Last Admin Trade Name Freq PRN Reason Stop Dose Admin Atorvastatin Calcium 40 mg 09/05/18 10:00 09/05/18 10:20 Lipitor - PO 40 mg DAILY [facility] Administration Metoprolol Succinate 50 mg 09/04/18 16:32 09/05/18 10:21 Toprol Xl - PO 50 mg BID [facility] Administration Warfarin Sodium 9 mg 09/04/18 18:00 09/04/18 18:06 Coumadin - PO 9 mg DAILY@1800 [facility] Administration ASSESSMENT AND PLAN: 72 year old female with history of Rheumatic Valve Disease s/p Mitral and Aortic Valve Replacement 2011 ([employer]tr[employer] tissue valves), Atrial Fibrillation on Coumadin, presents with new onset dyspnea, orthopnea, worse on exertion. 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 1. Acute on Chronic Diastolic CHF Exacerbation with moderate to severe re- stenosis of MV and severe re-stenosis of AV Mild elevation in BNP, TropI neg CXR - no acute cardiopulmonary findings. Responded to IV Lasix (40mg total) - currently comfortable, without dyspnea or hypoxia. 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 Patient's Private Branch Exchange Installer Dr. Oliva contacted and patient was recommended for transfer to [facility] - discussed with Dr. Main, Cardiothoracic Surgeon who accepted the patient for transfer. She is accepted to [facility] and medically stable for transfer when bed becomes available. 2. Atrial Fibrillation Continue BB and AC with Coumadin - INR 2.8 Metoprolol changed to Toprol XL by Cardiology DVT Px - on Coumadin, therapeutic INR
[2018-09-05] MEDS: WARFARIN NA 3 MG TABLET PO SCH (18:56)
[2018-09-05 21:17] VITALS: BP 127/67; PULSE 89; TEMP 99
== END 2018-09-05 20:49 | disposition short-term general hospital (02) | DRG 306 ==
LOC: JER 07:21 → JERBED 10:13 → J4W 21:26
PROVIDERS: ADMIT Internal Medicine
DX: I35.0 Nonrheumatic aortic (valve) stenosis (principal); I50.33 Acute on chronic diastolic (congestive) heart failure; I48.1 Persistent atrial fibrillation
CPT/HCPCS: 36415; 71045-TC-FY; 80053; 82248; 83735; 83880; 84100; 84439; 84443; 84484; 85025; 85027; 85610; 93005; 93010; 93306-TC; 99283-25